=== PATIENT | male | born 1960 | race Asian ===

== ENCOUNTER 2023-09-22 23:47 | Emergency (ER) | payer BC, SELFPAY ==
[2023-09-22 23:47] VITALS: BMI 28.1
[2023-09-22 23:52] VITALS: BP 119/84
[2023-09-23] VITALS (7 sets, daily range): BP systolic 97–117; BP diastolic 74–85; PULSE 73–78
[2023-09-23 00:28] LABS: Hematocrit 51.7 % (39.0-52.0); Mean Corp Hgb Conc. 32.9 g/dL (33.0-37.0); Mean Corpuscular Hgb 28.7 pg (27.0-31.0); Mean Corpuscular Volume 87.3 fL (80.0-94.0); Platelet Count 157 10^3/uL (130-400); Red Blood Cell Count 5.92 10^6/uL (4.70-6.10); Red Cell Dist. Width 12.7 % (11.5-14.5); White Blood Cell Count 6.2 10^3/uL (4.8-10.8)
[2023-09-23 00:30] LABS: ALT (SGPT) 35 U/L (0-50); AST (SGOT) 60 U/L (17-59); Albumin 3.9 g/dl (3.5-5.0); Alkaline Phosphatase 110 U/L (38-126); Blood Urea Nitrogen 24 mg/dl (9-20); Carbon Dioxide 26 mmol/L (22-30); Chloride 99 mmol/L (98-107); Estimated Creatinine Clearance 41 ml/min; Glucose 159 mg/dl (70-99); Potassium 4.2 mmol/L (3.5-5.1); Sodium 135 mmol/L (135-145); Total Bilirubin 0.9 mg/dl (0.2-1.3); Total Protein 6.7 g/dl (6.3-8.2); eGFR 48.72
[2023-09-23 01:54] LABS: Troponin I < 0.012 ng/ml
--- NOTE | 2023-09-23 02:25 | ED.GENMED ---
History of Present Illness
General
Chief Complaint: Fainting Sensation
Source: patient
Exam Limitations: none
Time Seen by Provider: 09/23/23 01:11
Nursing documentation reviewed up to this point in time: agreed with
Travel History
Have you had any contact with someone who has COVID-19?: No
Do you have any symptoms of coronavirus? Fever > 100 degrees, chills, cough, shortness of breath, sore throat, loss of taste or smell, muscle aches, or headache?: No
History of Present Illness
History of Present Illness:
Patient presents to ED after near syncopal episode at work this afternoon. Patient states that for the past 2 days, he has not been feeling well. Patient reports 'feeling hot', chills, body ache, along with decreased appetite. Patient returned to
work today when he had aforementioned near syncopal episode. Patient states that he was not standing position, when he felt lightheaded and clammy. Patient proceeded to sit down, as to not pass out. Since then, patient gradually started to feel
better. At the time of evaluation ED, patient reports feeling tired, does not have any other complaints. Denies chest pain. Denies shortness of breath. Denies headache. Denies dizziness. Denies sick contact. Denies recent change in
medications or diet. Denies previous history of similar symptoms.
Review of Systems
Review of Systems
Allergies reviewed?: Yes
All Other Systems: ROS reviewed and negative except as documented in HPI and ROS
Constitutional: Reports no symptoms
EENT: Reports no symptoms
Respiratory: Reports no symptoms
Cardiac: Reports diaphoresis and other (Near syncope)
ABD/GI: Reports no symptoms
: Reports no symptoms
Musculoskeletal: Reports no symptoms
Skin: Reports no symptoms
Neurological: Reports dizzy and weakness
Phy Exam
Physical Exam
Physical Exam:
Physical Exam
General: no apparent distress, not acutely ill. afebrile
Head: nc/at. eomi
Neck: supple. no meningeal signs.
Heart: s1/s2 regular rate and rhythm, no murmur. equal radial pulses.
Lungs: no acute respiratory distress. clear bilaterally
Abdomen: normal bowel sounds. not tender.
Neuro: alert and oriented. no focal neurological deficits
Skin: no rash
Psychiatric: well kept. interactive and cooperative
Extremities: no edema. no calf tenderness.
Course
Orders/Labs/Results
Orders:
Orders
09/23/23 00:05
EKG [Electrocardiogram (*1)] Urgent
Reason for Study: Vertigo / Dizzy
09/23/23 00:06
EKG- Treatment ONCE
Complete Blood Count/No Diff Urgent
Comprehensive Metabolic Panel Urgent
09/23/23 00:07
Troponin I Urgent
09/23/23 01:23
Orthostatic VS- Treatment ONCE
09/23/23 02:25
0.9% Sodium Chloride 1000 ml [Nss] 1,000 ml IV BOLUS
09/23/23 02:41
COVID-19 Antigen Urgent
Source: Nasal Swab
Influenza A+B Rapid Molecular Urgent
EDEL Source: Nasal Swab
Specimen Description:
Abnormal Lab Results
09/23/23 09/23/23
00:06 02:41
MCHC 32.9 L g/dL
(33.0-37.0)
BUN 24 H mg/dl
(9-20)
Creatinine 1.6 H mg/dL
(0.7-1.3)
Glucose 159 H mg/dl
(70-99)
AST 60 H U/L
(17-59)
SARS-CoV-2 Antigen Positive A
(Negative)
09/23/23 00:06
09/23/23 00:06
Vital Signs
Initial and Last Documented VS:
Initial Vital Signs
Temp Pulse Resp BP Pulse Ox
97.6 F 74 18 119/84 99
09/22/23 23:52 09/22/23 23:52 09/22/23 23:52 09/22/23 23:52 09/22/23 23:52
Last Documented Vital Signs
Temp Pulse Resp BP Pulse Ox
97.6 F 72 18 110/85 96
09/22/23 23:52 09/23/23 02:45 09/23/23 02:45 09/23/23 02:00 09/23/23 02:45
MDM/Problems Addressed
MDM/Problems Addressed:
History and exam consistent with likely vagal episode at work, triggered by dehydration from ongoing viral illness (COVID-19). Blood work is significant for acute renal failure, likely prerenal, as patient reports that his previous blood work has
not revealed any abnormal findings. In addition, EKG with nonspecific T wave inversions noted, without any chest pain nor any other risk factors for ACS. As such, patient, after IV hydration, will be discharged home, to the care of his family,
with recommendation to continue hydration at home along with PCP follow-up as an outpatient, including repeat blood work in 1 to 2 weeks. Patient expresses understanding at time of discharge.
*EKG
Interpreted by ED Provider?: Yes
EKG Intrepretation Date: 09/23/23
Heart Rate: 75
Rate: normal
Rhythm: sinus
[place]: normal axis
Ischemia: T-wave inversion
*Critical Care Note
Total Time (30-74mins, 75-104mins- exclusive of procedures): Not Applicable
ED Attending Note
-
Portions of this chart may have been created with voice recognition software.� Occasional wrong word or��sound alike� substitutions may have occurred due to the inherent limitations of voice recognition software.
Discharge Plan
Departure
Patient Disposition: Home (Routine Discharge)
Date of Disposition: 09/23/23
Time of Disposition: 03:23
Patient with high blood pressure during this ER visit?: No
Discharge Problem:
Near syncope, Abnormal ECG, COVID-19
Instructions: Near Fainting (DC), COVID-19 (DC)
Referrals:
Adam Harman, [Family Provider] -
Activity Restrictions/Additional Instructions:
As discussed, please continue hydration at home, along with PCP f/u as outpatient, including repeat blood work in 1-2 weeks. In ED, EKG showed some abnormal findings, which you will need to discuss with your PCP and determine whether or not you need
an outpatient consultation with civil engineering project designer. Please return to ED with any worsening symptoms or chest pain.
Interventions
Interventions:
*Risk Screen - Suicide Last Done: 09/22/23 23:52
*General Assessment Last Done: 09/23/23 00:02
*Neglect/Abuse Screening Last Done: 09/23/23 00:02
*ED COVID-19 Vaccine History Last Done: 09/23/23 00:01
*Nursing Disposition Last Done: 09/23/23 04:00
ED- Cardiac Assessment Last Done: 09/23/23 00:02
ED- Neurological Assessment Last Done: 09/23/23 00:02
Discharge Date and Time
Discharge Date/Time: 09/23/23 04:01
[2023-09-23] MEDS: NSS 1000 IV (02:38)
[2023-09-23 03:20] LABS: COVID-19 Antigen Positive (Negative)
== END 2023-09-23 04:01 | disposition home or self-care (01) ==
LOC: EMR 23:47
PROVIDERS: EMERGENCY PHYSICIAN Emergency Medicine; FAMILY PHYSICIAN Internal Medicine
DX: R55 Syncope and collapse (principal); R94.31 Abnormal electrocardiogram [ECG] [EKG]; U07.1 COVID-19
CPT/HCPCS: 99284; 80053; 84484; 85027; 87502; 87811; 93005